=== PATIENT | female | born 1980 | race Caucasian/White ===

== ENCOUNTER → 2020-11-01 | Outpatient (CLI) | payer OTHER ==
[~2020-11-01] MED LIST: IBUPROFEN600 MG PO; PERCOCET 5/325 T1 EA PO
== END ==
LOC: CT 10-17 10:00
DX: H53.9 Unspecified visual disturbance (principal); R51.9 Headache, unspecified
CPT/HCPCS: 70470; Q9963

== ENCOUNTER 2020-11-06 19:43 | Emergency (ER) | payer OTHER | END 2020-11-06 20:20 | disposition left against medical advice (07) | LOC: ER1 19:43 | DX: Z53.21 Procedure and treatment not carried out due to patient leaving prior to being seen by health care provider (principal) ==